=== PATIENT | female | born 1940 | race African-American/Black ===

== ENCOUNTER → 2018-01-21 16:21 | Outpatient (CLI) | payer MEDICARE, OTHER, SELFPAY ==
--- NOTE | 2018-01-21 | DI.MRI.S_ITS ---
PROCEDURE: MR SHOULDER RT WO CON INDICATIONS: Right shoulder pain and swelling with decreased range of motion post fall December 22 TECHNIQUE: Noncontrast oblique coronal T2 fast spin echo with fat saturation, oblique sagittal T1 spin echo and T2 fast spin echo with fat saturation, axial T1 spin echo and T2 fast spin echo with fat saturation through the shoulder. COMPARISON: None. FINDINGS: Image quality: Excellent. Rotator cuff: Massive full-thickness tear involving the supraspinatus and infraspinatus tendons is seen measuring approximately 3.7 cm in AP dimension as seen on sagittal image 7 series 8. There is interstitial tearing of the infraspinatus tendon. Teres minor appears intact. Mild subscapularis tendinopathy without intrasubstance fluid signal intensity. There is atrophy of the supraspinatus and infraspinatus muscles. Bones and bursae: No bone marrow contusions or fractures. Severe glenohumeral and acromioclavicular joint degeneration. The acromion demonstrates conventional anatomy, without an os acromiale. Capsule and soft tissues: There is circumferential degeneration of the labrum, probably chronic, especially since no definite intrasubstance fluid signal intensity is noted. The long head of the biceps tendon demonstrates normal location and morphology. The rotator interval appears normal, without fibrosis. The coracohumeral ligament is normal in thickness. IMPRESSION: Massive full-thickness tear of the supraspinatus and infraspinatus tendons. Additional interstitial tearing of the infraspinatus tendon. Mild subscapularis tendinopathy. Atrophy of the supraspinatus and infraspinatus muscles. Severe degenerative joint disease. Circumferential degenerative tearing of the labrum, chronic. Dictated by: Kvng Herrmann M.D. on 01/21/2018 at 16:23 Approved by: Kvng Herrmann M.D. on 01/21/2018 at 16:28
== END ==
PROVIDERS: Visit Provider Orthopaedic Surgery
DX: M75.121 Complete rotator cuff tear or rupture of right shoulder, not specified as traumatic (principal); S43.401A Unspecified sprain of right shoulder joint, initial encounter; M19.011 Primary osteoarthritis, right shoulder; M25.511 Pain in right shoulder
CPT/HCPCS: 73221